=== PATIENT | male | born 1985 | race African-American/Black ===

== ENCOUNTER 2020-03-28 19:12 | Emergency (ER) | payer OTHER ==
[~2020-03-28] VITALS: Ht 170.2 cm; Wt 81.6 kg
--- NOTE | 2020-03-28 19:40 | NUR ---
ED Nurse Note: Pt also reports 10/10 pain on R foot that is stabbing and pressure like in nature.
--- NOTE | 2020-03-28 19:40 | NUR ---
ED Nurse Note: Pt walked into ED for c/o R foot swelling onset four days ago that has now become worse. Pt states he was seen at [facility] yesterday and given antibiotics at the hospital and DC home. Swelling on R foot has become worse and pt now has pus like drainage in between toes that he states was not there yesterday. Pt reports foot originally became swollen four days ago after a chair fell on it. Pt is aaox4, breathing is normal and unlabored, VSS/NAD.
[2020-03-28] MEDS ORDERED: Acetaminophen 500mg (ES) tab ORAL ONE (20:00)
[2020-03-28 20:43] LABS: ANION GAP 8 mmol/L (5-15); BLOOD UREA NITROGEN 12 mg/dL (7-18); CALCIUM 8.8 MG/DL (8.5-10.1); CARBON DIOXIDE 30 MMOL/L (21-32); CHLORIDE 101 MMOL/L (98-107); CREATININE 1.5 MG/DL (0.55-1.30); POTASSIUM 3.5 MMOL/L (3.5-5.1); SODIUM 139 MMOL/L (136-145)
[2020-03-28 20:46] LABS: HEMOGLOBIN 12.7 G/DL (14.2-18.0); RED BLOOD COUNT 4.55 M/UL (4.70-6.10)
[2020-03-28 20:47] LABS: ALANINE AMINOTRANSFERASE 16 U/L (12-78); ALBUMIN 3.4 G/DL (3.4-5.0); ALBUMIN/GLOBULIN RATIO 0.5 (1.0-2.7); ALKALINE PHOSPHATASE 85 U/L (46-116); ASPARTATE AMINO TRANSFERASE 26 U/L (15-37); BILIRUBIN,TOTAL 0.4 MG/DL (0.2-1.0); EOSINOPHILS % (AUTO) 0.9 % (0.0-3.0); HEMATOCRIT 42.1 % (42.0-52.0); LYMPHOCYTES % (AUTO) 14.3 % (20.0-45.0); MEAN CORPUSCULAR VOLUME 93 FL (80-99); NEUTROPHILS % (AUTO) 72.8 % (45.0-75.0); PLATELET COUNT 313 K/UL (150-450); RED CELL DISTRIBUTION WIDTH 13.8 % (11.6-14.8)
--- NOTE | 2020-03-28 21:04 | NUR ---
ED Nurse Note: Patient has been positioned for Incision and drainage, kit at bedside. Area exposed.
[2020-03-28] MEDS ORDERED: Bacitracin Oint UD TOPIC ONE ×2 (21:19→21:30)
[2020-03-28] MEDS ORDERED: ACETAMINOPHEN-1 EAC1 ORAL (21:21)
[2020-03-28] MEDS ORDERED: CLINDAMYCIN HC300 MG ORAL (21:21)
--- NOTE | 2020-03-28 21:26 | NUR ---
ED Nurse Note: Dressing provided, bacitracin placd at wound area, guaze between the toe and coban about the anterior foot placed. Patient's boot returned to foot. Will continue to monitor for discharge.
--- NOTE | 2020-03-28 21:33 | NUR ---
ER DISCHARGE NOTE: Patient is cleared to be discharged per ERMD, pt is aox4, on room air, with stable vital signs. pt was given dc and prescription instructions, pt was able to verbalize understanding, pt id band and iv site removed without complications. pt is able to ambulate with steady gait. pt took all belongings.
[2020-03-28 21:34] VITALS: BP 110/75
--- NOTE | 2020-04-02 23:26 | Emergency Room Report ---
History of Present Illness General Chief Complaint: Lower Extremity Injury Source: Patient Present Illness HPI 35 yo Male presents for right foot pain and swelling. States that 4 days ago he dropped a chair on his foot. States it started swelling and went to another hospital yesterday. States that they had x-rays which were negative. States that it would looked infected and the doctors gave him a antibiotic shot. Patient febrile in triage. States that the swelling is getting worse. There is pain. Throbbing, 8 out of 10, nonradiating. Denies alcohol or drug use. No other aggravating relieving factors. Denies any other associated symptoms Allergies: Coded Allergies: No Known Allergies (Unverified , 03/28/20) COVID-19 Screening Contact w/high risk pt: No Recent Travel to affected area: No Experienced COVID-19 symptoms?: No COVID-19 symptoms experienced: Fever (T>100.4F or >38C) COVID-19 Testing performed INTEGRATION SPECIALIST: No Patient History Past Medical History: none Past Surgical History: none Pertinent Family History: none Social History: Denies: smoking, alcohol use, drug use Immunizations: UTD Reviewed Nursing Documentation: PMH: Agreed; PSxH: Agreed Review of Systems All Other Systems: negative except mentioned in HPI Physical Exam Sp02 EP Interpretation: reviewed, normal General Appearance: no apparent distress, alert, GCS 15, non-toxic Head: normocephalic, atraumatic Eyes: bilateral eye normal inspection, bilateral eye PERRL ENT: hearing grossly normal, normal pharynx, no angioedema, normal voice Neck: full range of motion, supple/symm/no masses Respiratory: chest non-tender, lungs clear, normal breath sounds, speaking full sentences Cardiovascular #1: regular rate, rhythm, no edema Cardiovascular #2: 2+ carotid (R), 2+ carotid (L), 2+ radial (R), 2+ radial (L) , 2+ dorsalis pedis (R), 2+ dorsalis pedis (L) Gastrointestinal: normal bowel sounds, non tender, soft, non-distended, no guarding, no rebound Rectal: deferred Genitourinary: normal inspection, no CVA tenderness Musculoskeletal: back normal, normal range of motion, gait/station normal, non- tender Neurologic: alert, motor strength/tone normal, oriented x3, sensory intact, responsive, speech normal Psychiatric: judgement/insight normal, memory normal, mood/affect normal, no suicidal/homicidal ideation Reflexes: 3+ bicep (R), 3+ bicep (L), 3+ tricep (R), 3+ tricep (L), 3+ knee (R) , 3+ knee (L) Skin: other - swelling/erythema dorsum R foot. fluctuance noted between 1st and 2nd digits. discharge noted Lymphatic: no adenopathy Procedures Incision and Drainage Incision and Drainage : Consent: Verbal Blade Size: 11 I & D Procedure: betadine prep, sterile drapes applied, sterile dressing applied Wound Location: lower extremity - R foot Wound's Depth, Shape: other - abscess Wound Explored: clean Anesthesia: 1% Lidocaine Splint Applied?: No Sling Applied?: No Patient Tolerated: Well Complications: None Medical Decision Making Diagnostic Impression: Primary Impression: Abscess of foot ER Course Hospital Course 35-year-old male presents to ED with redness, swelling to R foot Differential diagnoses include: Cellulitis, abscess, rash. Clinical course Patient placed on stretcher. After initial history and physical I ordered labs , tylenol, antibiotics labs reviewed - minimal leukocytosis, Hb/Hct stable, no electrolyte abnormalities. antibiotics given. There was one area of fluctuance between the first and second toes. I performed I&D and drained the area. Dressing applied. I discussed findings with patient. I offered option for admission but patient declined. Will attempt outpatient therapy first. Vitals stable. Patient nontoxic-appearing. Safe for discharge for close outpatient follow-up. I will provide referrals Diagnosis - abscess of foot stable and discharged to home with Rx Clindamycin, T#3. f/u with PMD. return to ED if symptoms recur/worsen. Labs Test 03/28/20 19:55 White Blood Count 12.0 K/UL (4.8-10.8) Red Blood Count 4.55 M/UL (4.70-6.10) Hemoglobin 12.7 G/DL (14.2-18.0) Hematocrit 42.1 % (42.0-52.0) Mean Corpuscular Volume 93 FL (80-99) Mean Corpuscular Hemoglobin 27.8 PG (27.0-31.0) Mean Corpuscular Hemoglobin Concent 30.1 G/DL (32.0-36.0) Red Cell Distribution Width 13.8 % (11.6-14.8) Platelet Count 313 K/UL (150-450) Mean Platelet Volume 6.4 FL (6.5-10.1) Neutrophils (%) (Auto) 72.8 % (45.0-75.0) Lymphocytes (%) (Auto) 14.3 % (20.0-45.0) Monocytes (%) (Auto) 10.0 % (1.0-10.0) Eosinophils (%) (Auto) 0.9 % (0.0-3.0) Basophils (%) (Auto) 2.0 % (0.0-2.0) Sodium Level 139 MMOL/L (136-145) Potassium Level 3.5 MMOL/L (3.5-5.1) Chloride Level 101 MMOL/L (98-107) Carbon Dioxide Level 30 MMOL/L (21-32) Anion Gap 8 mmol/L (5-15) Blood Urea Nitrogen 12 mg/dL (7-18) Creatinine 1.5 MG/DL (0.55-1.30) Estimat Glomerular Filtration Rate > 60 mL/min (>60) Glucose Level 96 MG/DL (74-106) Calcium Level 8.8 MG/DL (8.5-10.1) Total Bilirubin 0.4 MG/DL (0.2-1.0) Aspartate Amino Transf (AST/SGOT) 26 U/L (15-37) Alanine Aminotransferase (ALT/SGPT) 16 U/L (12-78) Alkaline Phosphatase 85 U/L (46-116) Total Protein 9.6 G/DL (6.4-8.2) Albumin 3.4 G/DL (3.4-5.0) Globulin 6.2 g/dL Albumin/Globulin Ratio 0.5 (1.0-2.7) Status: improved Disposition: HOME, SELF-CARE Condition: Stable Scripts Acetaminophen With Codeine (T#3) (TYLENOL #3 TAB*) Y Tab 1 TAB ORAL Q8H PRN for For Pain, #12 TAB Prov: Wei Vieyra MD 03/28/20 Clindamycin Hcl (CLINDAMYCIN HCL) 300 Mg Capsule 300 MG ORAL THREE TIMES A DAY, #21 CAP Prov: Wei Vieyra MD 03/28/20 Referrals: NOT CHOSEN IPA/,REFERRING [facility] Patient Instructions: Abscess, [id number] Wei Vieyra MD Apr 02, 2020 23:26
== END 2020-03-28 21:34 | disposition home or self-care (01) ==
LOC: EMR 19:32
DX: L02.611 Cutaneous abscess of right foot (principal); D72.829 Elevated white blood cell count, unspecified
CPT/HCPCS: 10060; 36415; 80053; 85025; 96365; J7030; Z7502; 99284; S0077